=== PATIENT | female | born 2000 | race Caucasian/White ===

== ENCOUNTER 2019-03-03 17:36 | Observation (INO) ==
[2019-03-03 18:20] LABS: URINE SOURCE VOIDED
[2019-03-03 18:29] LABS: BILIRUBIN URINE NEGATIVE (NEGATIVE); BLOOD URINE NEGATIVE (NEGATIVE); CLARITY SL. CLOUDY (CLEAR); COLOR YELLOW; GLUCOSE URINE NEGATIVE (NEGATIVE); KETONE URINE TRACE mg/dL (NEGATIVE); LEUKOCYTES URINE TRACE (NEGATIVE); NITRITE URINE NEGATIVE (NEGATIVE); PROTEIN URINE TRACE mg/dL (NEGATIVE); SP GRAVITY URINE 1.015; UROBILINOGEN URINE 1 mg/dL
[2019-03-03 18:52] VITALS: BP 110/53
== END 2019-03-03 19:25 | disposition home or self-care (01) ==
LOC: P.LD 17:36 → P.ED 17:36 → P.LD 17:49
PROVIDERS: ADMIT Obstetrics & Gynecology; ATTEND Obstetrics & Gynecology

== ENCOUNTER 2019-05-17 18:02 | Observation (INO) ==
[2019-05-17] MEDS ORDERED: TYLENOL PO ONE (18:48)
--- NOTE | 2019-05-17 18:57 | PROVIDER DOCUMENTATION ---
This chart was entered by Veronica Macias Scribe, acting as scribe for Anant Michel MD. HPI-Abdominal Pain/GI Problem - General Chief Complaint: Abdominal Pain Stated Complaint: 29 WKS PREG, STOMACH PAINS Time Seen by Provider: 05/17/19 18:33 Source: patient Allergies/Adverse Reactions: Patient Allergies Allergy/AdvReac Type Severity Reaction Status Date / Time No Known Allergies Allergy Verified 05/17/19 18:26 Home Medications: Home Medication List Medication Instructions Recorded Confirmed Last Taken Type Pnv No.95/Ferrous Fum/Folic AC 1 ea PO DAILY 03/03/19 05/17/19 05/17/19 History [ Vitamin Tablet] - History of Present Illness-ABD Nature of Presenting Problems: pt is a 19 yowf c/o ruq and epigastric abd pain starting this am at 0700. pt is 29 weeks gestation and had appt w/Dr. Lowry today and sts she had abd pain w/lightheadedness and mild sob and Dr. lowry told pt if symptoms became worse to come to er. pt denies nvd, cp and herrera. pt has hx of asthma as a child. Abdominal Pain Onset Location: reports: RUQ, epigastric Pain Radiation: reports: no radiation Severity in ED: reports: mild Onset/Duration: reports: this morning Timing: reports: still present Activities at Onset: reports: none Modifying Factors: improves with: lying down (worsens) Associated Symptoms: reports: shortness of breath ( mild). denies: diarrhea, genitourinary problems, headaches, nausea, vomiting Last BM: this afternoon (normal) Dark Stools Present?: reports: none noticed Rectal Bleeding: reports: none Recently seen or treated by another doctor?: Yes (OBGYN today ) Review of Systems - Adult - REVIEW OF SYSTEMS - ADULT Constitutional: reports: no symptoms reported. denies: fever, fatique, night sweats Eyes: reports: no symptoms reported Ears, Nose, Mouth & Throat: reports: no symptoms reported Cardiovascular: reports: no symptoms reported Respiratory: reports: see HPI, shortness of breath (mild). denies: chronic cough, cough, dyspnea on exertion Gastrointestinal: reports: see HPI, abdominal pain (ruq, epigastric). denies: diarrhea, nausea, vomiting Genitourinary: reports: no symptoms reported. denies: dysuria, discharge, frequency Musculoskeletal: reports: no symptoms reported Integumentary: reports: no symptoms reported Neurological: reports: no symptoms reported. denies: ataxia, dizziness/vertigo, headache/migraines Psychiatric: reports: no symptoms reported Endocrine: reports: no symptoms reported Hematologic/Lymphatic: reports: no symptoms reported Allergic/Immunologic: reports: no symptoms reported All Other Systems: Reviewed and Negative Past History - Adult - PAST MEDICAL HISTORY-ADULT Review of Records: reports: Nursing Assessment Review, Medications Reviewed, Social history reviewed & non-contributory. Major Childhood Illnesses: reports: denies history Cardiovascular: reports: denies history Respiratory: reports: asthma Gastrointestinal: reports: denies history Obstetrical/Gynecological: reports: denies history Genitourinary: reports: denies history Musculoskeletal: reports: denies history Neurological: reports: denies history Endocrine/Immune: reports: denies history Other Conditions: reports: denies history - PRIOR SURGERIES/PROCEDURES Surgical/Procedure History: reports: none - IMMUNIZATION STATUS Childhood Immunizations: See Nurse Assessment Flu Vaccine: See Nurse Assessment - FAMILY HISTORY Family History: reviewed, not pertinent - SOCIAL HISTORY Smoking: non-smoker Substance Use: none/never Physical Exam-General - PHYSICAL EXAM-ADULT Initial Vital Signs Reviewed: Yes - CONSTITUTIONAL General Appearance: alert, no apparent distress. negative: lethargic, slow to respond, obtunded - EYES Eyes: PERRL/EOMI, pink conjunctivae - HEAD, EARS, NOSE, MOUTH & THROAT HENMT: normocephalic/atraumatic, moist mucous membranes, normal ENT inspection - NECK Neck: non-tender, full range of motion, supple, normal inspection - RESPIRATORY Respiratory: chest non-tender, lungs clear, normal breath sounds - CARDIOVASCULAR Cardiovascular: normal peripheral pulses, regular rate, rhythm - GASTROINTESTINAL (ABDOMEN) Abdominal Exam: normal bowel sounds, soft, no organomegaly, no pulsatile mass, tenderness (to palp ruq and epigastric), other (fundus is 3 finger lengths above umbilicus). negative: non tender, distended, guarding, rigid, rebound - LYMPHATIC Lymphatic: no adenopathy - MUSCULOSKELETAL Back Exam: normal inspection, no CVA tenderness, no vertebral tenderness Extremity: normal range of motion, non-tender, normal gait, normal inspection Peripheral Pulses: radial (R): 2+, radial (L): 2+ - SKIN Integumentary: normal color, normal turgor, warm/dry - NEUROLOGIC Neurologic: grossly normal, no motor/sensory deficits - PSYCHIATRIC Psych/Mental Status: normal mood/affect, normal thought content, normal thought process, oriented x 3 Progress - PLAN OF CARE/RESULTS Progress/Plan/Lab Results: Vital Signs - 8 hr 05/17/19 18:04 Temperature 97.4 F L Pulse Rate 94 H Respiratory Rate 18 Blood Pressure 115/62 O2 Sat by Pulse Oximetry 96 Orders Category Date Time Status Heart Tones NOW Care 05/17/19 18:07 Active - CONSULTS/PCP/HOSPITALIST Notification #1 *Consult/PCP/Hospitalist*: DR LOWRY Time Discussed: 18:55 Consult Disposition: other (SEND DIRECTLY OVER TO [facility]-D L&D.) Departure - Departure Date of Disposition Decision: 05/17/19 Time of Disposition Decision: 18:55 DIAGNOSIS: RUQ abdominal pain, 29 weeks gestation of Disposition: ADMITTED INPATIENT 09 Certified Medical Emergency: Emergent Condition: Fair Referrals and Follow-Ups: Santiago Pickard MD [Primary Care Provider] - - Critical Care Note This patient required my direct & personal management of CC.: No Attestation - Physician/ JOSELYN Attestation Patient care was provided by Advanced Practice Provider:: No The physician spent face to face time with patient:: Yes Advanced Practice Provider documentation review:: Supervising physician onsite and consulted in the evaluation and care of this patient. The physician did have a face to face encounter with the patient. This chart was documented by the indicated scribe, (Veronica Macias Scribe) and accurately reflects the services I performed and decisions made by me, Anant Michel MD, as attested by the provider's signature.
[2019-05-17] MEDS ORDERED: TYLENOL PO PRN (21:07)
[2019-05-17 21:08] VITALS: BP 130/73
[2019-05-17 21:19] LABS: URINE SOURCE VOIDED
[2019-05-17 21:32] LABS: BILIRUBIN URINE NEGATIVE (NEGATIVE); COLOR YELLOW; GLUCOSE URINE NEGATIVE (NEGATIVE); KETONE URINE TRACE mg/dL (NEGATIVE); SP GRAVITY URINE 1.025; TURBIDITY URINE HAZY (CLEAR)
[2019-05-17 21:33] LABS: BLOOD URINE NEGATIVE (NEGATIVE); LEUKOCYTES URINE NEGATIVE (NEGATIVE); NITRITE URINE NEGATIVE (NEGATIVE); PH URINE 7.5; PROTEIN URINE TRACE mg/dL (NEGATIVE); UROBILINOGEN URINE NORMAL (NORMAL)
[2019-05-17 21:41] LABS: UR AMPHETAMINES QUAL NONE DETECTED (NONE DETECT); UR BARBITUATES QUAL NONE DETECTED (NONE DETECT); UR BENZODIAZEPIN QUAL NONE DETECTED (NONE DETECT); UR CANNABINOIDS QUAL NONE DETECTED (NONE DETECT); UR COCAINE QUAL NONE DETECTED (NONE DETECT); UR METHADONE QUAL NONE DETECTED (NONE DETECT); UR OPIATES QUAL NONE DETECTED (NONE DETECT); UR OXYCODONE QUAL NONE DETECTED (NONE DETECT); UR PCP QUAL NONE DETECTED (NONE DETECT)
[2019-05-17] MEDS ORDERED: LR 1,000 ML IV ONE (21:44)
[2019-05-17] MEDS ORDERED: STADOL IV ONE (21:46)
[2019-05-17 22:30] LABS: BASO# 0.02 X1000 (0.0-0.2); BASO% 0.2 % (0.0-0.8); EOS# 0.26 X1000 (0.0-0.7); EOS% 2.5 % (0.0-10.0); HEMATOCRIT 35.2 % (37.0-47.0); HEMOGLOBIN 11.9 g/dL (12.0-16.0); IMM GRAN# 0.04 X1000 (0.0-0.04); IMM GRAN% 0.4 % (0.0-0.5); LYMPH# 2.38 X1000 (1.2-3.4); LYMPH% 22.5 % (20.5-51.1); MCH 27.6 PG (27-31); MCHC 33.8 g/dL (33-37); MCV 81.7 FL (81-99); MONO# 0.85 X1000 (0.11-0.59); NEUT# 7.03 X1000 (1.4-6.5); NEUT% 66.4 % (42.2-75.2); PLT 226 X1000 (130-400); RBC 4.31 XMIL (4.2-5.4); RDW 13.5 % (11.5-14.5); WBC 10.58 X1000 (4.8-10.8)
[2019-05-17 23:09] LABS: AGAP 15; ALB/GLOB RATIO 1.4; ALBUMIN 3.4 g/dL (3.5-5.0); ALKALINE PHOSPHATASE 133 U/L (32-104); BUN 7 mg/dL (8-22); CALCIUM 8.8 mg/dL (8.8-10.2); CHLORIDE 102 mmol/L (98-107); COSMO 275; CREATININE 0.5 mg/dL (0.5-0.9); ESTIMATED GFR > 60; GLUCOSE 81 mg/dL (70-104); GOT 12 U/L (10-30); GPT 11 U/L (10-36); SODIUM 139 mmol/L (136-145); TCO2 22 mmol/L (25-35); TOTAL BILIRUBIN 0.18 mg/dL (0.20-1.00); TOTAL PROTEIN 5.8 g/dL (6.3-8.3)
[2019-05-17 23:21] LABS: ALB/GLOB RATIO 1.3; ALBUMIN 3.6 g/dL (3.5-5.0); DIRECT BILIRUBIN 0.1 mg/dL (0.00-0.20); TOTAL BILIRUBIN 0.18 mg/dL (0.20-1.00); TOTAL PROTEIN 6.3 g/dL (6.3-8.3)
== END 2019-05-18 | disposition home or self-care (01) ==
LOC: P.ED 18:02 → INTOOBSV 19:40 → LD 19:40
PROVIDERS: ADMIT Obstetrics & Gynecology; ATTEND Obstetrics & Gynecology

== ENCOUNTER 2019-07-14 06:27 | Inpatient (IN) ==
[2019-07-14 07:03] LABS: URINE SOURCE VOIDED
[2019-07-14 07:06] LABS: BILIRUBIN URINE NEGATIVE (NEGATIVE); BLOOD URINE SMALL (NEGATIVE); COLOR YELLOW; GLUCOSE URINE NEGATIVE (NEGATIVE); KETONE URINE 40 mg/dL (NEGATIVE); LEUKOCYTES URINE NEGATIVE (NEGATIVE); NITRITE URINE NEGATIVE (NEGATIVE); PROTEIN URINE 70 mg/dL (NEGATIVE); TURBIDITY URINE CLEAR (CLEAR); UROBILINOGEN URINE NORMAL (NORMAL)
[2019-07-14 07:18] LABS: UR AMPHETAMINES QUAL NONE DETECTED (NONE DETECT); UR BARBITUATES QUAL NONE DETECTED (NONE DETECT); UR BENZODIAZEPIN QUAL NONE DETECTED (NONE DETECT); UR CANNABINOIDS QUAL NONE DETECTED (NONE DETECT); UR COCAINE QUAL NONE DETECTED (NONE DETECT); UR METHADONE QUAL NONE DETECTED (NONE DETECT); UR OPIATES QUAL NONE DETECTED (NONE DETECT); UR OXYCODONE QUAL NONE DETECTED (NONE DETECT); UR PCP QUAL NONE DETECTED (NONE DETECT)
[2019-07-14] MEDS ORDERED: LR 1,000 ML ONE (07:59)
[2019-07-14] MEDS ORDERED: PEPCID PO ONE (08:39)
[2019-07-14] MEDS ORDERED: PEPCID PO PRN (08:39)
[2019-07-14] MEDS ORDERED: KEFZOL 1 GM/D5W 1 GM/50 ML IVPB IV PRN (08:39)
[2019-07-14] MEDS ORDERED: STADOL IV PRN (08:39)
[2019-07-14] MEDS ORDERED: TYLENOL PO PRN (08:39)
[2019-07-14] MEDS ORDERED: REGLAN PO ONE (08:39)
[2019-07-14] MEDS ORDERED: PEPCID IV PRN (08:39)
[2019-07-14] MEDS ORDERED: AMPICILLIN 2 GM in NS 100 ML IV ONE (08:39)
[2019-07-14] MEDS ORDERED: ZOFRAN IV PRN (08:39)
[2019-07-14] MEDS ORDERED: PITOCIN 30 UNITS/NS 30 UNIT/500 ML IV.SOLN IV SCH ×2 (08:45→18:00)
[2019-07-14] MEDS ORDERED: LR 1,000 ML IV SCH (08:45)
[2019-07-14] MEDS ORDERED: SODIUM CHLORIDE 0.9% INJ SCH (08:45)
[2019-07-14] MEDS: LR 1,000 ML IV SCH ×2 (09:05→13:43)
[2019-07-14 09:30] LABS: BASO# 0.01 X1000 (0.0-0.2); BASO% 0.1 % (0.0-0.8); EOS# 0.09 X1000 (0.0-0.7); EOS% 0.8 % (0.0-10.0); HEMATOCRIT 36.1 % (37.0-47.0); HEMOGLOBIN 11.9 g/dL (12.0-16.0); IMM GRAN# 0.04 X1000 (0.0-0.04); IMM GRAN% 0.4 % (0.0-0.5); LYMPH# 1.99 X1000 (1.2-3.4); LYMPH% 18.6 % (20.5-51.1); MCH 26.6 PG (27-31); MCV 80.6 FL (81-99); MONO# 0.96 X1000 (0.11-0.59); MPV 13.2 FL (7.4-10.4); NEUT% 71.1 % (42.2-75.2); PLT 196 X1000 (130-400); RBC 4.48 XMIL (4.2-5.4); RDW 13.7 % (11.5-14.5); WBC 10.69 X1000 (4.8-10.8)
[2019-07-14] MEDS ORDERED: NAROPIN 0.2% INJ SCH (09:30)
[2019-07-14] MEDS ORDERED: FENTANYL-BUPIV-NS 500 MCG-0.125% 250 ML EPIDURAL SCH (10:00)
[2019-07-14] MEDS ORDERED: AMPICILLIN 1 GM in NS 50 ML IV SCH (12:41)
[2019-07-14] MEDS ORDERED: XYLOCAINE-MPF 1% INJ PRN ×2 (14:34→17:46)
[2019-07-14] MEDS ORDERED: MINERAL OIL MISC PRN (14:35)
--- NOTE | 2019-07-14 16:41 | HISTORY AND PHYSICAL ---
HISTORY OF PRESENT ILLNESS: The patient is a 19-year-old, 1, para 0, who presents to Labor and Delivery in active phase labor at term. She reports rupture of membranes, verified today by testing at approximately 1:00 in the a.m. on the day of admission, and painful uterine contractions. She reports movement. PREVIOUS MEDICAL HISTORY: Pertinent for asthma. FAMILY HISTORY: Diabetes, lung cancer, stroke. ALLERGIES TO MEDICINES: None. MEDICINES: vitamins. SOCIAL HISTORY: Negative for alcohol or drugs. REVIEW OF SYSTEMS: As above, positive for movement, ruptured membranes, contractions. Negative for significant vaginal bleeding, cough, runny nose, fever, or sore throat. PHYSICAL EXAMINATION: GENERAL: This is a well-developed, well-nourished, obviously gravid patient, with an epidural in place, in no acute distress. HEENT: Grossly normal. LUNGS: Nonlabored breathing. HEART: Regular rate and rhythm. ABDOMEN: Gravid with an estimated weight of 3800 g. PELVIC: 3 cm, 50% per RN. EXTREMITIES: Without clubbing, cyanosis, and trace edema. ASSESSMENT/PLAN: 1. A 19-year-old, 1 at term, presents in active phase of labor with rupture of membranes. 2. Group B strep positive. We will start group B strep prophylaxis. 3. Normal state of labor. Oxytocin for any arrest or delay, especially since she has been ruptured approximately 10-12 hours since the time of presentation. 4. well being, reactive tracing. 5. Anticipate normal spontaneous vaginal delivery. 6. Epidural in place.
[2019-07-14] MEDS ORDERED: PITOCIN 20 UNITS/NS 20 UNITS/1,000 ML IV.SOLN ONE (17:43)
[2019-07-14] MEDS ORDERED: BOOSTRIX VACCINE IM ONE (17:46)
[2019-07-14] MEDS ORDERED: M-M-R II VACCINE SUBQ ONE (17:46)
[2019-07-14] MEDS ORDERED: BENADRYL PO PRN (17:46)
[2019-07-14] MEDS ORDERED: PITOCIN IM PRN (17:46)
[2019-07-14] MEDS ORDERED: CYTOTEC PO PRN (17:46)
[2019-07-14] MEDS ORDERED: BENADRYL IV PRN (17:46)
[2019-07-14] MEDS ORDERED: AMBIEN PO PRN (17:46)
[2019-07-14] MEDS ORDERED: ATARAX PO PRN (17:46)
[2019-07-14] MEDS ORDERED: HYDROXYZINE IM PRN (17:46)
[2019-07-14] MEDS ORDERED: NORCO-10 PO PRN (17:56)
[2019-07-14] MEDS ORDERED: PITOCIN 20 UNITS/NS 20 UNITS/1,000 ML IV.SOLN IV SCH (18:00)
[2019-07-14] MEDS: MOTRIN PO PRN (18:43)
[2019-07-14] MEDS: PERI MEDS (DERMOPLAST/NUPERCAINAL/TUCKS) MISC PRN (18:53)
[2019-07-14] MEDS: PERICOLACE PO SCH (20:35)
--- NOTE | 2019-07-14 20:54 | OPERATIVE NOTE ---
PROCEDURE DATE: 07/14/2019 DELIVERY NOTE: The patient is a 19-year-old, 1, para 0, now 1, who presented to Labor and Delivery with approximately 8 to 10 hours of rupture of membranes and active phase labor, 3 cm dilated. She progressed normally through first stage labor with category 1 tracing, second stage of labor with epidural in place. She pushed for approximately 1 hour and delivered over a left labial tear, a liveborn male . The head delivered from OA position. Nuchal cord x1 was reduced on the perineum and the remainder of the infant delivered without difficulty or complication. The infant was handed to the maternal abdomen where the cord was clamped x2 and cut. Spontaneous cry and activity was revealed after stimulation and drying. The was placed skin to skin with the mother. The placenta delivered intact with a three-vessel cord and the perineum was inspected. The left labial tear was repaired with 3-0 Vicryl. The perineum was hemostatic and intact postprocedure. ESTIMATED BLOOD LOSS: 350 mL. COMPLICATIONS: None. ANESTHESIA: Epidural. Infant Apgars and weight in the chart.
[2019-07-15 04:53] LABS: BASO# 0.02 X1000 (0.0-0.2); BASO% 0.2 % (0.0-0.8); EOS# 0.14 X1000 (0.0-0.7); EOS% 1.1 % (0.0-10.0); HEMATOCRIT 30.8 % (37.0-47.0); IMM GRAN# 0.03 X1000 (0.0-0.04); IMM GRAN% 0.2 % (0.0-0.5); LYMPH# 2.85 X1000 (1.2-3.4); LYMPH% 22.5 % (20.5-51.1); MCH 26.7 PG (27-31); MCHC 32.5 g/dL (33-37); MCV 82.4 FL (81-99); MONO# 1.16 X1000 (0.11-0.59); MONO% 9.2 % (1.7-9.3); NEUT# 8.46 X1000 (1.4-6.5); NEUT% 66.8 % (42.2-75.2); PLT 182 X1000 (130-400); RBC 3.74 XMIL (4.2-5.4); RDW 13.9 % (11.5-14.5); WBC 12.66 X1000 (4.8-10.8)
--- NOTE | 2019-07-15 08:04 | OB/GYN PROGRESS NOTE ---
- Subjective PP1 no cx vssaf s/nt -cce hgb 10.0 A PP1 routine pp recovery home in am OB Physical Exam Vital Signs - 8 hr 07/15/19 02:05 07/15/19 07:15 Temperature 97.6 F 96.9 F L Pulse Rate 73 72 Respiratory Rate 18 20 Blood Pressure 119/61 128/75 O2 Sat by Pulse Oximetry 100 100 - CONSTITUTIONAL General Appearance: appears well Active Medications Generic Name Dose Route Start Last Admin Trade Name Freq PRN Reason Stop Dose Admin Acetaminophen 650 mg 07/14/19 08:39 Tylenol PO Q4-6H PRN PRN Headache Hydrocodone Bitart/Acetaminophen 1 each 07/14/19 17:56 07/14/19 18:42 Harper-10 PO 1 each Q4H PRN PRN Administration Pain Benzocaine 1 each 07/14/19 17:46 07/14/19 18:53 Helena Meds (Dermoplast/Nupercainal/Tucks) MISC 1 applic 3-4XDAY PRN PRN Administration episiotomy/hemorrhoids Diphenhydramine HCl 12.5 mg 07/14/19 17:46 Benadryl IV Q4H PRN PRN Itching Diphenhydramine HCl 25 mg 07/14/19 17:46 Benadryl PO Q4H PRN PRN Itching Famotidine 40 mg 07/14/19 08:39 Pepcid PO Q12H PRN PRN GI upset or indigestion Hydroxyzine HCl 50 mg 07/14/19 17:46 Hydroxyzine IM Q3-4H PRN PRN Nausea Hydroxyzine HCl 50 mg 07/14/19 17:46 Atarax PO Q3-4H PRN PRN Nausea Lactated Ringer's 1,000 mls @ 0 mls/hr 07/14/19 08:45 Lr IV .Q0M CECILIA As Directed Oxytocin/Sodium Chloride 20 units in 1,000 mls @ 0 mls/hr 07/14/19 18:00 Pitocin 20 Units/Ns IV .Q0M CECILIA As Directed Ibuprofen 800 mg 07/14/19 17:46 07/14/19 18:43 Motrin PO 800 mg Q8H PRN PRN Administration cramping Misoprostol 800 microgm 07/14/19 17:46 Cytotec PO PRN PRN Severe bleeding Ondansetron HCl 4 mg 07/14/19 08:39 07/14/19 08:30 Zofran IV 4 mg PRN PRN Administration Nausea Multivit/Folic Acid/Iron 1 each 07/15/19 09:00 Precare PO DAILY CECILIA Senna/Docusate Sodium 1 each 07/14/19 21:00 07/14/19 20:35 Pericolace PO 1 each QHS CECILIA Administration Sodium Chloride 5 - 10 ml 07/14/19 08:45 Sodium Chloride 0.9% INJ DIRECTED CECILIA Zolpidem Tartrate 10 mg 07/14/19 17:46 Ambien PO HS PRN PRN Sleep Laboratory Results - last 24 hr 07/14/19 07/14/19 07/15/19 08:20 08:20 04:40 WBC 10.69 12.66 H RBC 4.48 3.74 L Hgb 11.9 L 10.0 L D Hct 36.1 L 30.8 L MCV 80.6 L 82.4 MCH 26.6 L 26.7 L MCHC 33.0 32.5 L RDW Std Deviation 13.7 13.9 Plt Count 196 182 MPV 13.2 H 13.0 H Immature Gran % (Auto) 0.4 0.2 Neut % (Auto) 71.1 66.8 Lymph % (Auto) 18.6 L 22.5 Eddy % (Auto) 9.0 9.2 Eos % (Auto) 0.8 1.1 Baso % (Auto) 0.1 0.2 Immature Gran # (Auto) 0.04 0.03 Neut # (Auto) 7.60 H 8.46 H Lymph # (Auto) 1.99 2.85 Eddy # (Auto) 0.96 H 1.16 H Eos # (Auto) 0.09 0.14 Baso # (Auto) 0.01 0.02 RPR NON-REACTIVE
[2019-07-15] MEDS: PRECARE PO SCH (09:45)
[2019-07-15] MEDS: MOTRIN PO PRN (18:38)
[2019-07-15] MEDS: PERICOLACE PO SCH (23:38)
[2019-07-15] MEDS: PERI MEDS (DERMOPLAST/NUPERCAINAL/TUCKS) MISC PRN (23:52)
[2019-07-16] MEDS: MOTRIN PO PRN (02:08)
[2019-07-16 07:50] VITALS: BP 115/73
[2019-07-16] MEDS ORDERED: FLU VACCINE IM ONE (08:00)
[2019-07-16] MEDS: PRECARE PO SCH (09:02)
== END 2019-07-16 13:26 | disposition home or self-care (01) | DRG 807 ==
LOC: P.OPLD 06:27 → LD 06:29
PROVIDERS: ADMIT Obstetrics & Gynecology; ATTEND Obstetrics & Gynecology